=== PATIENT | female | born 1960 | race Two or more races ===

== ENCOUNTER 2024-06-10 10:13 | Emergency (ER) | payer BC, OTHER ==
[2024-06-10 12:19] VITALS: PULSE 65; RESP 18; O2SAT 97
[2024-06-10] MEDS ORDERED: IBUP-1454 PO (13:10)
[2024-06-10 13:19] VITALS: BP 132/74; PULSE 60; RESP 16; TEMP 98.2; O2SAT 97
== END 2024-06-10 15:14 | disposition home or self-care (01) ==
LOC: ER 10:13 → EDBD 10:13 → ER 15:14
DX: R07.81 Pleurodynia (principal); Z79.1 Long term (current) use of non-steroidal anti-inflammatories (NSAID); V89.2XXA Person injured in unspecified motor-vehicle accident, traffic, initial encounter; Y93.89 Activity, other specified; Y92.89 Other specified places as the place of occurrence of the external cause; Y99.8 Other external cause status
CPT/HCPCS: 71101; 72040